=== PATIENT | female | born 1935 | race Caucasian/White ===

== ENCOUNTER → 2017-10-02 | Outpatient (CLI) | payer OTHER ==
[~2017-10-02] MED LIST: ALPR.25; ALPR.25 PO; AMOCLA875 PO; AMOX500; ASPI81CH PO; AZIT500 PO; CALGLU500; CAND32 PO; CAND4; CHOL10002 PO; CONEST1.25; GUAPHELA PO; Golytely Solu4000 ML PO; HYDACE5 PO; HYDGUAL120 PO; HYDROCODON-ACE1 EAC3 PO; Kristalose20 GM PO; LANS30EC; LEVSOD125 PO; LEVSOD137 PO; LEVSOD25; LOSHYD PO; MULVITB PO; MULVITMINF; NAPR220 PO; OMEP20ER PO; SPIR50 PO; TEMA30 PO
[2017-10-03 13:35] LABS: Stool Occult Bld Immuno 1 Negative (NEGATIVE)
== END ==
LOC: LAB 18:12 → LAB SHORT 18:12
PROVIDERS: Nurse Practitioner Family
DX: R19.7 Diarrhea, unspecified (principal)
CPT/HCPCS: G0328

== ENCOUNTER → 2018-06-25 | Outpatient (CLI) | payer OTHER ==
[2018-06-25 14:39] LABS: BASOPHILS ABSOLUTE AUTO 0.04 K/mm3 (0.00-0.23); BASOPHILS PERCENT AUTO 1 % (0-2); EOSINOPHILS ABSOLUTE AUTO 0.18 K/mm3 (0.00-0.68); EOSINOPHILS PERCENT AUTO 4 % (0-6); Hematocrit 38.7 % (33.0-51.0); Hemoglobin 13.1 g/dL (11.5-16.0); IMMATURE GRAN ABSOLUTE AUTO 0.01 K/mm3 (0.00-0.10); IMMATURE GRAN PERCENT AUTO 0 % (0-1); LYMPHOCYTES ABSOLUTE AUTO 1.14 K/mm3 (0.84-5.20); LYMPHOCYTES PERCENT AUTO 26 % (21-46); MONOCYTES ABSOLUTE AUTO 0.47 K/mm3 (0.16-1.47); MONOCYTES PERCENT AUTO 11 % (4-13); Mean Corpuscular HGB 33.2 pg (26.0-34.0); Mean Corpuscular HGB Conc 33.9 g/dL (31.5-36.5); Mean Corpuscular Volume 98 fL (80-100); Mean Platelet Volume 9.6 fL (9.1-12.4); NEUTROPHILS ABSOLUTE AUTO 2.61 K/mm3 (1.96-9.15); NEUTROPHILS PERCENT AUTO 59 % (41-73); Platelet Count 166 K/mm3 (150-400); RDW Coefficient Variation 13.4 % (11.7-14.2); RDW Standard Deviation 48.8 fL (35.1-46.3); Red Blood Cell Count 3.95 M/mm3 (3.80-5.20); White Blood Cell Count 4.45 K/mm3 (4.00-11.30)
== END | disposition home or self-care (01) ==
LOC: LAB 10:35 → LAB SHORT 10:35
DX: E03.9 Hypothyroidism, unspecified (principal); Z86.2 Personal history of diseases of the blood and blood-forming organs and certain disorders involving the immune mechanism
CPT/HCPCS: 84443; 85025

== ENCOUNTER → 2018-12-16 | Outpatient (CLI) | payer OTHER | END | disposition home or self-care (01) | LOC: LAB 16:33 → LAB SHORT 16:33 → LAB FUT 16:33 | DX: R82.90 Unspecified abnormal findings in urine (principal) | CPT/HCPCS: 87077; 87086; 87186 ==

== ENCOUNTER 2019-05-26 11:27 | Emergency (ER) | payer OTHER ==
[~2019-05-26] VITALS: Ht 154.9 cm; Wt 79.4 kg
[2019-05-26 12:08] LABS: BASOPHILS ABSOLUTE AUTO 0.04 K/mm3 (0.00-0.23); BASOPHILS PERCENT AUTO 1 % (0-2); EOSINOPHILS ABSOLUTE AUTO 0.15 K/mm3 (0.00-0.68); EOSINOPHILS PERCENT AUTO 3 % (0-6); Hematocrit 37.8 % (33.0-51.0); Hemoglobin 12.6 g/dL (11.5-16.0); IMMATURE GRAN ABSOLUTE AUTO 0.02 K/mm3 (0.00-0.10); IMMATURE GRAN PERCENT AUTO 0 % (0-1); LYMPHOCYTES ABSOLUTE AUTO 1.18 K/mm3 (0.84-5.20); LYMPHOCYTES PERCENT AUTO 25 % (21-46); MONOCYTES ABSOLUTE AUTO 0.38 K/mm3 (0.16-1.47); MONOCYTES PERCENT AUTO 8 % (4-13); Mean Corpuscular HGB 32.9 pg (26.0-34.0); Mean Corpuscular HGB Conc 33.3 g/dL (31.5-36.5); Mean Corpuscular Volume 99 fL (80-100); Mean Platelet Volume 9.4 fL (9.1-12.4); NEUTROPHILS ABSOLUTE AUTO 2.88 K/mm3 (1.96-9.15); NEUTROPHILS PERCENT AUTO 62 % (41-73); Platelet Count 163 K/mm3 (150-400); RDW Coefficient Variation 12.7 % (11.7-14.2); RDW Standard Deviation 46.2 fL (35.1-46.3); Red Blood Cell Count 3.83 M/mm3 (3.80-5.20); White Blood Cell Count 4.65 K/mm3 (4.00-11.30)
[2019-05-26 12:27] LABS: Alanine Aminotransfer (ALT/SGP 23 U/L (12-78); Albumin/Globulin Ratio 1.2 (0.8-1.8); Alk Phos 37 U/L (50-136); Anion Gap 7 mmol/L (6-16); Aspartate Aminotrans (AST/SGOT 23 U/L (12-37); Bilirubin, Total 0.7 mg/dL (0.1-1.0); Blood Urea Nitrogen 29 mg/dL (8-24); Bun/Creatinine Ratio 36.2 (12.0-20.0); CO2, Blood 27 mmol/L (21-32); Calcium, Blood 8.8 mg/dL (8.5-10.1); Chloride, Blood 100 mmol/L (98-108); Globulin, Blood 3.2 g/dL (2.2-4.0); Glomerular Filtration Rate >60 (60-); Glucose, Blood 92 mg/dL (70-99); Potassium, Blood 3.8 mmol/L (3.5-5.5); Sodium, Blood 134 mmol/L (136-145); Total Protein, Blood 7.2 g/dL (6.4-8.2); Troponin I <0.015 ng/mL (0.000-0.040)
[2019-05-26] MEDS ORDERED: Aldactone50 MG PO (15:20)
[2019-05-26] MEDS ORDERED: LEVSOD112 PO (15:20)
[2019-05-26] MEDS ORDERED: HYDCHL12.5 PO (15:21)
[2019-05-26] MEDS ORDERED: LOSARTAN-HCTZ1 EACH PO (15:22)
[2019-05-26] MEDS ORDERED: CEPH250A PO (15:22)
[2019-05-26] MEDS ORDERED: LORCET 5-325 M1 EACH PO (15:23)
[2019-05-26] MEDS ORDERED: ALPR.25 PO (15:23)
[2019-05-26] MEDS ORDERED: TEMA30 PO (15:24)
== END 2019-05-26 15:40 | disposition home or self-care (01) ==
LOC: ER 11:27
PROVIDERS: Emergency Medicine
DX: K44.9 Diaphragmatic hernia without obstruction or gangrene (principal); R07.2 Precordial pain; I10 Essential (primary) hypertension; E03.9 Hypothyroidism, unspecified; Z88.8 Allergy status to other drugs, medicaments and biological substances; Z88.1 Allergy status to other antibiotic agents; Z79.899 Other long term (current) drug therapy; Z79.82 Long term (current) use of aspirin
CPT/HCPCS: 36415; 71046; 80053; 84484; 85025; 93005; 93010; 99285-25

== ENCOUNTER 2020-04-30 13:10 | Emergency (ER) | payer OTHER ==
[~2020-04-30] VITALS: Ht 162.6 cm; Wt 81.7 kg
[~2020-04-30 13:10] MED LIST changes: +Aldactone50 MG PO; +CEPH250A PO; +HYDCHL12.5 PO; +LEVSOD112 PO; +LORCET 5-325 M1 EACH PO; +LOSARTAN-HCTZ1 EACH PO
[2020-04-30 14:58] LABS: Source, Urine Catheter
[2020-04-30 15:03] LABS: Appearance, Urine Turbid (Clear); Bilirubin, Urine Neg (Neg); Blood, Urine 5+ (Neg); Color, Urine Yellow (P-Yellow); Glucose Qualitative, Urine Neg (Neg); Ketones, Urine Neg (Neg); Leukocyte Esterase, Urine 3+ (Neg); Nitrite, Urine Pos (Neg); Protein, Urine 4+ (Neg); Urobilinogen, Urine NORM (Normal)
[2020-04-30 15:26] LABS: White Blood Cells, Urine TNTC /hpf (0-5)
[2020-04-30 15:27] LABS: Bacteria Many /hpf; Squamous Epithelial Cells Rare /hpf (Few)
[2020-04-30] MEDS ORDERED: CEFP200 PO (15:50)
== END 2020-04-30 16:07 | disposition home or self-care (01) ==
LOC: ER 13:10
PROVIDERS: Emergency Medicine
DX: N39.0 Urinary tract infection, site not specified (principal); Z88.5 Allergy status to narcotic agent; Z88.6 Allergy status to analgesic agent; Z79.899 Other long term (current) drug therapy; I10 Essential (primary) hypertension; E03.9 Hypothyroidism, unspecified
CPT/HCPCS: 81001; 87077; 87086; 87186; 99283

== ENCOUNTER 2020-05-13 15:29 | Inpatient (IN) | payer OTHER ==
[~2020-05-13] VITALS: Ht 157.5 cm; Wt 80.2 kg
[~2020-05-13 15:29] MED LIST changes: +CEFP200 PO; +LEVSOD100 PO; -LEVSOD112 PO
[2020-05-13] MEDS ORDERED: POTA10T PO (15:48)
[2020-05-13] MEDS ORDERED: LOSA50 PO (15:49)
[2020-05-13] MEDS ORDERED: OMEP20ER PO (15:51)
[2020-05-13] MEDS ORDERED: TRIM100 PO (15:52)
[2020-05-13 16:12] LABS: BASOPHILS ABSOLUTE AUTO 0.07 K/mm3 (0.00-0.23); BASOPHILS PERCENT AUTO 1 % (0-2); EOSINOPHILS ABSOLUTE AUTO 0.18 K/mm3 (0.00-0.68); EOSINOPHILS PERCENT AUTO 2 % (0-6); Hemoglobin 13.4 g/dL (11.5-16.0); IMMATURE GRAN ABSOLUTE AUTO 0.08 K/mm3 (0.00-0.10); IMMATURE GRAN PERCENT AUTO 1 % (0-1); LYMPHOCYTES ABSOLUTE AUTO 0.86 K/mm3 (0.84-5.20); LYMPHOCYTES PERCENT AUTO 8 % (21-46); MONOCYTES ABSOLUTE AUTO 0.98 K/mm3 (0.16-1.47); MONOCYTES PERCENT AUTO 9 % (4-13); Mean Corpuscular HGB 32.1 pg (26.0-34.0); Mean Corpuscular HGB Conc 34.4 g/dL (31.5-36.5); Mean Corpuscular Volume 93 fL (80-100); Mean Platelet Volume 9.7 fL (9.1-12.4); NEUTROPHILS ABSOLUTE AUTO 8.64 K/mm3 (1.96-9.15); NEUTROPHILS PERCENT AUTO 80 % (41-73); Platelet Count 194 K/mm3 (150-400); RDW Coefficient Variation 13.3 % (11.7-14.2); RDW Standard Deviation 45.4 fL (35.1-46.3); Red Blood Cell Count 4.18 M/mm3 (3.80-5.20); White Blood Cell Count 10.81 K/mm3 (4.00-11.30)
[2020-05-13 16:22] LABS: Alanine Aminotransfer (ALT/SGP 15 U/L (12-78); Albumin, Blood 3.2 g/dL (3.4-5.0); Albumin/Globulin Ratio 0.9 (0.8-1.8); Alk Phos 34 U/L (50-136); Anion Gap 9 mmol/L (6-16); Aspartate Aminotrans (AST/SGOT 18 U/L (12-37); Bilirubin, Total 0.6 mg/dL (0.1-1.0); Blood Urea Nitrogen 12 mg/dL (8-24); Bun/Creatinine Ratio 18.5 (12.0-20.0); CO2, Blood 21 mmol/L (21-32); Calcium, Blood 8.8 mg/dL (8.5-10.1); Chloride, Blood 105 mmol/L (98-108); Creatinine, Blood 0.65 mg/dL (0.40-1.00); Globulin, Blood 3.6 g/dL (2.2-4.0); Glomerular Filtration Rate >60 (60-); Glucose, Blood 103 mg/dL (70-99); Potassium, Blood 3.1 mmol/L (3.5-5.5); Sodium, Blood 135 mmol/L (136-145); Total Protein, Blood 6.8 g/dL (6.4-8.2)
[2020-05-13 16:27] LABS: Source, Urine Clean Catch
[2020-05-13 16:34] LABS: Appearance, Urine Hazy (Clear); Bilirubin, Urine Neg (Neg); Blood, Urine 5+ (Neg); Color, Urine Yellow (P-Yellow); Glucose Qualitative, Urine Neg (Neg); Ketones, Urine 3+ (Neg); Leukocyte Esterase, Urine 1+ (Neg); Nitrite, Urine Neg (Neg); Protein, Urine 2+ (Neg); Urobilinogen, Urine NORM (Normal)
[2020-05-13 16:45] LABS: White Blood Cells, Urine 25-50 /hpf (0-5)
[2020-05-13 16:46] LABS: Bacteria Rare /hpf; Red Blood Cells, Urine 50-100 /hpf (0-2); Squamous Epithelial Cells Rare /hpf (Few); Yeast/Fungi Urine Few /hpf
[2020-05-13] MEDS ORDERED: ALPR.25 PO (20:49)
--- NOTE | 2020-05-14 04:30 | NUR ---
SUMMARY PT ARRIVED TO FLOOR IN NO DISTRESS. PT HAD EPISODES OF DIARRHEA. PT NORMALLY SELF CATHS BUT REQUIRED ASSISTANCE. PT HAS BEEN SLEEPING WELL. PT CURRENTLY SLEEPING AND IN NO DISTRESS. CALL LIGHT IN REACH.
[2020-05-14 05:00] LABS: BASOPHILS ABSOLUTE AUTO 0.06 K/mm3 (0.00-0.23); BASOPHILS PERCENT AUTO 1 % (0-2); EOSINOPHILS ABSOLUTE AUTO 0.18 K/mm3 (0.00-0.68); EOSINOPHILS PERCENT AUTO 2 % (0-6); Hematocrit 36.7 % (33.0-51.0); Hemoglobin 12.4 g/dL (11.5-16.0); IMMATURE GRAN ABSOLUTE AUTO 0.06 K/mm3 (0.00-0.10); IMMATURE GRAN PERCENT AUTO 1 % (0-1); LYMPHOCYTES ABSOLUTE AUTO 0.89 K/mm3 (0.84-5.20); LYMPHOCYTES PERCENT AUTO 11 % (21-46); MONOCYTES ABSOLUTE AUTO 0.96 K/mm3 (0.16-1.47); MONOCYTES PERCENT AUTO 12 % (4-13); Mean Corpuscular HGB 32.3 pg (26.0-34.0); Mean Corpuscular HGB Conc 33.8 g/dL (31.5-36.5); Mean Corpuscular Volume 96 fL (80-100); Mean Platelet Volume 9.4 fL (9.1-12.4); NEUTROPHILS ABSOLUTE AUTO 5.87 K/mm3 (1.96-9.15); NEUTROPHILS PERCENT AUTO 73 % (41-73); Platelet Count 174 K/mm3 (150-400); RDW Coefficient Variation 13.7 % (11.7-14.2); RDW Standard Deviation 48.1 fL (35.1-46.3); Red Blood Cell Count 3.84 M/mm3 (3.80-5.20); White Blood Cell Count 8.02 K/mm3 (4.00-11.30)
[2020-05-14 05:21] LABS: Alanine Aminotransfer (ALT/SGP 15 U/L (12-78); Albumin, Blood 2.9 g/dL (3.4-5.0); Albumin/Globulin Ratio 0.9 (0.8-1.8); Alk Phos 31 U/L (50-136); Anion Gap 7 mmol/L (6-16); Aspartate Aminotrans (AST/SGOT 10 U/L (12-37); Bilirubin, Total 0.5 mg/dL (0.1-1.0); Blood Urea Nitrogen 10 mg/dL (8-24); Bun/Creatinine Ratio 14.8 (12.0-20.0); CO2, Blood 24 mmol/L (21-32); Calcium, Blood 8.7 mg/dL (8.5-10.1); Chloride, Blood 105 mmol/L (98-108); Creatinine, Blood 0.67 mg/dL (0.40-1.00); Globulin, Blood 3.2 g/dL (2.2-4.0); Glomerular Filtration Rate >60 (60-); Glucose, Blood 110 mg/dL (70-99); Potassium, Blood 3.3 mmol/L (3.5-5.5); Sodium, Blood 136 mmol/L (136-145); Total Protein, Blood 6.1 g/dL (6.4-8.2)
--- NOTE | 2020-05-14 14:30 | NUR ---
SHE HAS JUST NEEDED AN IV RESTART BECAUSE HER OLD LFA IV BOTH LEAKED AND LIGHTLY INFILTRATED. SHE WAS ST.CATHED IN THE 10 OCLOCK HOUR FOR 260 MLS OF CONCENTRATED ORANGE ARLENE URINE. SHE IS A&O BUT FORGETFUL. SHE IS WORRIED ABOUT HER AT HOME. SHE CALLED HIM AND SPOKE WITH HIM ON THE PHONE. SHE SAYS HER DAUGHTER WILL CHECK ON HIM. SHE HAS HAD 3 MUCOUSY BROWN YELLOW STOOLS SO FAR THIS SHIFT. THE NIGHT NURSE SAID SHE HAD 3 OR 4 LAST NIGHT AND THE PATIENT AGREES. THEY ARE NOT CHARTED IN THE I&O. A PROBIOTIC HAS BEEN STARTED. SHE CONTINUES ON ORAL VANCO ELIXER.
--- NOTE | 2020-05-14 17:31 | NUR ---
SHE CONTINUES TO PASS MUCOUS AND STOOL RECTALLY, SMALL TO MEDIUM AMTS. SHE HAS BEEN ST. CATHED X2 THE LAST AT 1640. URINE IS CONCENTRATED. CONTINUOUS IVF'S HAVE BEEN STOPPED.TELE NSR. PO POTASSIUM REPLACEMENT GIVEN THIS AM.
--- NOTE | 2020-05-15 06:43 | NUR ---
SHIFT SUMMARY PT A&O X4. CALLS APPROPRIATELY. SBA WITH WALKER TO BSC. MEDICATED X2 FOR COMPLAINTS OF L KNEE PAIN. MEDICATED X1 FOR COMPLAINTS OF NAUSEA. PT STATES SHE WILL ASK DAUGHTER TO BRING HOME CATH KIT IN, SHE HAS TROUBLES WITH OUR KITS. NO OTHER ACUTE CHANGE THIS SHIFT. NO OTHER COMPLAINTS AT THIS TIME. WILL CONTINUE TO MONITOR UNTIL REPORT GIVEN TO DAY RN.
[2020-05-15 08:41] LABS: Anion Gap 8 mmol/L (6-16); Blood Urea Nitrogen 10 mg/dL (8-24); Bun/Creatinine Ratio 16.8 (12.0-20.0); CO2, Blood 21 mmol/L (21-32); Calcium, Blood 8.4 mg/dL (8.5-10.1); Chloride, Blood 105 mmol/L (98-108); Glomerular Filtration Rate >60 (60-); Glucose, Blood 112 mg/dL (70-99); Potassium, Blood 3.3 mmol/L (3.5-5.5); Sodium, Blood 134 mmol/L (136-145)
--- NOTE | 2020-05-15 15:37 | NUR ---
SHE HAS HAD A DIFFICULT DAY. SHE HAS HAD PAIN IN HER L LEG, EXCRUTIATING AT TIMES, AND PAIN IN HER BACK. SHE HAS HAD 3 SMALL OR MEDIUM LIQUID BROWN STOOLS TODAY WITH MUCH LESS MUCOUS COMPARED TO YESTERDAY. SHE HAS BEEN ST.CATHED X2 FOR CONCENTRATED URINE. BLADDER SCAN DONE POST CATH THIS MORNING AND SHOWED INDEED AN EMPTY BLADDER. BECAUSE OF HER DESPERATE C/O PAIN ORDERED HYDROCODONE WHICH SHE TAKES AT HOME FOR HER BACK. SHE RECEIVED THAT ONCE THEN LATER A DOSE OF FENTANYL BECAUSE SHE C/O EXCRUCIATING PAIN IN HER L KNEE, MOSTLY THE KNEE CAP AREA, AND HER BACK. I CANNOT SEE ANYTHING ABNORMAL ABOUT HER L KNEE. SHE LATER SAID IT HURT UP TO HER L GROIN. I DO NOT SEE ANY ABNORMALITY. SHE DIALED 911 FROM HER PHONE BECAUSE SHE SAID WE DIDN'T ANSWER HER CALL LIGHT. SHE SHOWED ME THE BUTTON SHE WAS PUSHING. IT WAS HER TV BUTTON. I RE-INSTRUCTED HER. THEN SHE WOKE UP FROM A SHORT NAP AND WAS YELLING LOUD. SHE THOUGHT SHE HEARD HER SON. HE IS NOT HERE. SHE REALIZED SHE WOKE UP CONFUSED AFTER I SPOKE WITH HER AWHILE. HER DAUGHTER BROUGHT HER CATHETERS FROM HOME. THE 2ND CATH TODAY WAS DONE WITH HER OWN. SHE COULD NOT DO IT THOUGH BECAUSE OF HER KNEE NOT ALLOWING A SUCCESSFUL POSITION.
--- NOTE | 2020-05-15 16:30 | NUR ---
SHE CALLED OUT BECAUSE SHE DID NOT KNOW WHERE SHE WAS. I RE-ORIENTED HER AND SHE WAS ABLE TO SWALLOW HER POTASSIUM REPLACEMENT AND A HYDROCODONE. THE FENTANYL WAS DC'D PRESUMING THAT IT IS WHAT IS CAUSING HER CONFUSION. SHE HAS A HYDROCODONE PRESCRIPTION AT HOME. I ASKED HER IF SHE TAKES HER XANAX AT HOME DAILY. SHE SAID NO. BED ALARM IS ON AND SHE WAS RE-ORIENTED ON OUR FALL PRECAUTIONS. SHE HAS HAD MOBILITY DIFFICULTY D/T HER PAINFUL L KNEE.
--- NOTE | 2020-05-15 17:34 | NUR ---
SHE HAS HAD AN EVENTFUL DAY. FENTANYL DC'D D/T SUDDEN CONFUSION. HYDROCODONE ORDERED Q6P PAIN IN HER L KNEE AND BACK. MOBILITY DECREASED TODAY D/T HER L KNEE PAIN. STOOL LESS FREQUENT TODAY, LESS URGENT AND LESS MUCOUSY. HIGHEST TEMP 99.5. TELE NSR. PO POTASSIUM REPLACEMENT GIVEN. HER DAUGHTER BROUGHT IN HER OWN URINARY CATHETERS. THEY ARE LESS PAINFUL FOR HER. WILL PUT RIC WRAP ON L KNEE PER HER REQUEST.
--- NOTE | 2020-05-15 18:07 | NUR ---
UP IN THE CHAIR FOR DINNER. SHE STILL REMAINS ON A CL DIET. CHAIR ALARM ON. SHE IS NEARLY BACK TO HER BASELINE MENTAL STATUS.
--- NOTE | 2020-05-16 05:27 | NUR ---
SHIFT SUMMARY PT HAS BEEN AWAKE MOST OF THE NIGHT OFF AND ON. PT A/OX3 BUT WAKES UP CONFUSED/DISORIENTED AND FORGETFUL. PT HAS BEEN REDIRECTABLE AND EASY TO REORIENT. PT HAS SELF CATHETER KITS BROUGHT IN FROM HOME AND SHE HAS BEEN ABLE TO USE THEM INDEPENDENTLY, HOWEVER DOES NEED ASSISTANCE GETTING TO THE BEDSIDE COMMODE. PT GETS ABOUT 125-200ML ON AVERAGE WITH EACH CATH. PT HAS SELF CATH ABOUT 3X THIS SHIFT. IV ABX INFUSED PER ORDERS. NEW IV START THIS SHIFT TO RIGHT AC. MEDICATED FOR LEFT KNEE PAIN PER ORDERS. NO ACUTE CHANGES TO REPORT. BED IN LOWEST POSITION, CALL LIGHT WITHIN REACH.
--- NOTE | 2020-05-16 07:36 | NUR ---
pt resting wakes to verbal stimuli pt stated no abd cramping with stool like yesterday pt worried about self cath too much last night
--- NOTE | 2020-05-16 09:51 | NUR ---
dr Perdomo by to see pt labs ordered for am
[2020-05-16 10:42] LABS: Magnesium, Blood 1.5 mg/dL (1.6-2.4); Potassium, Blood 3.1 mmol/L (3.5-5.5)
--- NOTE | 2020-05-16 10:54 | NUR ---
pt found sitting up on the floor in between her bsc on her bed stated she had just had small bm and then got up to get her equipment to self cath and her feet slipped and she fell onto her butt it does not hurt helped her to her feet and then she self cathed dr calhoun notified no xray ordered will cont to monitor instructed pt to call every time she gets up and non skid socks placed if pt ref to call will place will bed alarm
--- NOTE | 2020-05-16 12:00 | NUR ---
PT RESTING WAKES TO VERBAL STIMULI PT GIVEN HER LUNCH TRAY WISHES IT WAS REG FOOD
--- NOTE | 2020-05-16 15:50 | NUR ---
PT ASKED WHEN DINNER IS ONLY ONE SMALL BM YARY TOLD PT IF SHE CONT TO HAVE DEC BM WE CAN ASK DR LOMELI TO ADV THE DIET TOMORROW
--- NOTE | 2020-05-16 17:41 | NUR ---
pt watching tv stated she has still not had any other bm today just small one earlier no pain at this time cl diet given medas given as sched
--- NOTE | 2020-05-17 05:03 | NUR ---
EMBEDDED SYSTEMS DEVELOPER SUMMARY PT A/O X4 WITH FORGETFULNESS. FREQUENT URINATION. PT SELF CATHETERIZES AND CALLS APPROPRIATELY EACH TIME WHEN NEEDING TO VOID. BED ALARM ON. MEDICATED ONCE FOR PAIN IN FT TONIGHT. DENIES NAUSEA, CRAMPING. PT HAD A MEDIUM BROWN MUCOUSY STOOL THIS EARLY AM. VSS.
[2020-05-17 05:54] LABS: Anion Gap 9 mmol/L (6-16); Blood Urea Nitrogen 5 mg/dL (8-24); Bun/Creatinine Ratio 9.1 (12.0-20.0); CO2, Blood 20 mmol/L (21-32); Calcium, Blood 8.5 mg/dL (8.5-10.1); Chloride, Blood 105 mmol/L (98-108); Creatinine, Blood 0.55 mg/dL (0.40-1.00); Glomerular Filtration Rate >60 (60-); Glucose, Blood 100 mg/dL (70-99); Sodium, Blood 134 mmol/L (136-145)
--- NOTE | 2020-05-17 18:40 | NUR ---
PT WANTED TO DISCHARGE THIS AFTERNOON BUT DEVELOPED BLADDER SPASMS THAT WERE QUITE SEVERE PER PT. DR LOMELI INFORMED WITH T/C, DITROPAN ORDERED TID, FIRST DOSE NOW. PT IS REPORTING RELIEF OF SPASMS AT THIS TIME. WILL CONTINUE TO MONITOR AND REPORT TO ONCOMING RN
--- NOTE | 2020-05-18 04:18 | NUR ---
SHIFT SUMMARY PATIENT HAD NO ACUTE CHANGES OBSERVED. AXOX 3 AND ONE ASSIST TO BSC. PIV REMAINS INTACT. IV ABX INFUSED. AUTO BODY MECHANIC APPRENTICE REPORTS SB 58. SELF CATH WITH HOME KIT. VSS/AFEBRILE. REPORTED LEG PAIN AND RECEIVED NORCO PER EMAR. REPORTED SHE DID NOT SLEEP WELL LAST NOC SHIFT AND TEMAZEPAM 15 MG GIVEN FOR INSOMNIA. ORAL VANCO GIVEN PER EMAR. CALL LIGHT IN REACH. BED IN LOWEST POSITION. WILL CONTINUE TO MONITOR UNTIL DAY SHIFT NURSE ASSUMES CARE.
[2020-05-18 05:22] LABS: Anion Gap 6 mmol/L (6-16); Blood Urea Nitrogen 5 mg/dL (8-24); Bun/Creatinine Ratio 9.8 (12.0-20.0); CO2, Blood 23 mmol/L (21-32); Calcium, Blood 8.4 mg/dL (8.5-10.1); Chloride, Blood 105 mmol/L (98-108); Creatinine, Blood 0.51 mg/dL (0.40-1.00); Glomerular Filtration Rate >60 (60-); Glucose, Blood 91 mg/dL (70-99); Magnesium, Blood 1.7 mg/dL (1.6-2.4); Potassium, Blood 3.3 mmol/L (3.5-5.5); Sodium, Blood 134 mmol/L (136-145)
[2020-05-18] MEDS ORDERED: OXYB5 PO (15:25)
[2020-05-18] MEDS ORDERED: Vancomycin500 MG/100 PO (15:27)
[2020-05-18] MEDS ORDERED: SACC250C PO (15:29)
--- NOTE | 2020-05-18 16:23 | NUR ---
DISCHARGE DISCHARGE INSTRUCTIONS, MEDICATION LIST AND FOLLOW UP APPOINTMENT REVIEWED WITH PT. QUESTIONS/CONCERNS ANSWERED. PT VERBALLY EXPRESSED UNDERSTANDING OF ALL INSTRUCTIONS RECEIVED. ESCORTED OUT VIA W/C BY AKILAH
== END 2020-05-18 16:19 | disposition home or self-care (01) | DRG 372 ==
LOC: ER 15:29 → MEDS 21:06
PROVIDERS: Internal Medicine; Physician Assistant; ADMIT Internal Medicine
DX: A04.72 Enterocolitis due to Clostridium difficile, not specified as recurrent (principal); N39.0 Urinary tract infection, site not specified; E03.9 Hypothyroidism, unspecified; E86.0 Dehydration; E87.6 Hypokalemia; Z20.828 Contact with and (suspected) exposure to other viral communicable diseases; F41.9 Anxiety disorder, unspecified; I10 Essential (primary) hypertension; K21.9 Gastro-esophageal reflux disease without esophagitis; E83.42 Hypomagnesemia
CPT/HCPCS: 36415; 51701; 74177; 80048; 80053; 81001; 83690; 83735; 84132; 85025; 87086; 87106; 87324; 87493; 93005; 93010; 96361-59; 96374-59; 99285-25; A9270; A9270-GY; J0696; J1650; J2405; J3010; J3370; J3475; J7030; J7120; Q9967; U0002

== ENCOUNTER 2020-06-05 03:57 | Observation (INO) | payer OTHER ==
[~2020-06-05] VITALS: Ht 152.4 cm; Wt 77.1 kg
[~2020-06-05 03:57] MED LIST changes: +LOSA50 PO; +OXYB5 PO; +POTA10T PO; +SACC250C PO; +TRIM100 PO; +VANCOCIN HCL125 MG PO; +Vancomycin500 MG/100 PO
[2020-06-05 04:12] LABS: BASOPHILS ABSOLUTE AUTO 0.03 K/mm3 (0.00-0.23); BASOPHILS PERCENT AUTO 0 % (0-2); EOSINOPHILS ABSOLUTE AUTO 0.12 K/mm3 (0.00-0.68); EOSINOPHILS PERCENT AUTO 1 % (0-6); Hematocrit 37.6 % (33.0-51.0); Hemoglobin 12.8 g/dL (11.5-16.0); IMMATURE GRAN ABSOLUTE AUTO 0.05 K/mm3 (0.00-0.10); IMMATURE GRAN PERCENT AUTO 1 % (0-1); LYMPHOCYTES ABSOLUTE AUTO 0.89 K/mm3 (0.84-5.20); LYMPHOCYTES PERCENT AUTO 9 % (21-46); MONOCYTES ABSOLUTE AUTO 0.79 K/mm3 (0.16-1.47); MONOCYTES PERCENT AUTO 8 % (4-13); Mean Corpuscular HGB 31.7 pg (26.0-34.0); Mean Corpuscular Volume 93 fL (80-100); Mean Platelet Volume 9.5 fL (9.1-12.4); NEUTROPHILS ABSOLUTE AUTO 8.04 K/mm3 (1.96-9.15); NEUTROPHILS PERCENT AUTO 81 % (41-73); Platelet Count 212 K/mm3 (150-400); RDW Coefficient Variation 12.8 % (11.7-14.2); RDW Standard Deviation 44.3 fL (35.1-46.3); Red Blood Cell Count 4.04 M/mm3 (3.80-5.20); White Blood Cell Count 9.92 K/mm3 (4.00-11.30)
[2020-06-05 04:34] LABS: Alanine Aminotransfer (ALT/SGP 18 U/L (12-78); Albumin, Blood 3.3 g/dL (3.4-5.0); Albumin/Globulin Ratio 0.8 (0.8-1.8); Alk Phos 38 U/L (50-136); Anion Gap 11 mmol/L (6-16); Aspartate Aminotrans (AST/SGOT 16 U/L (12-37); Bilirubin, Total 0.8 mg/dL (0.1-1.0); Blood Urea Nitrogen 13 mg/dL (8-24); Bun/Creatinine Ratio 17.3 (12.0-20.0); CO2, Blood 23 mmol/L (21-32); Calcium, Blood 9.3 mg/dL (8.5-10.1); Chloride, Blood 101 mmol/L (98-108); Creatinine, Blood 0.75 mg/dL (0.40-1.00); Globulin, Blood 3.9 g/dL (2.2-4.0); Glomerular Filtration Rate >60 (60-); Glucose, Blood 134 mg/dL (70-99); Potassium, Blood 3.2 mmol/L (3.5-5.5); Sodium, Blood 135 mmol/L (136-145); Total Protein, Blood 7.2 g/dL (6.4-8.2)
[2020-06-05 11:38] LABS: Source, Urine Catheter
[2020-06-05 11:40] LABS: Bilirubin, Urine Neg (Neg); Blood, Urine 5+ (Neg); Glucose Qualitative, Urine Neg (Neg); Ketones, Urine 3+ (Neg); Leukocyte Esterase, Urine 2+ (Neg); Nitrite, Urine Neg (Neg); Protein, Urine 2+ (Neg); Urobilinogen, Urine NORM (Normal)
[2020-06-05 11:53] LABS: Appearance, Urine Hazy (Clear); Color, Urine Yellow (P-Yellow)
[2020-06-05 11:57] LABS: Bacteria Rare /hpf; Squamous Epithelial Cells Rare /hpf (Few); White Blood Cells, Urine 25-50 /hpf (0-5)
--- NOTE | 2020-06-05 16:33 | NUR ---
PATIENT IS ALERT AND ORIENTED AND COOPERATIVE WITH CARE. PATIENT COMPLAINS OF PAIN IN HER LEFT LEG, TREATED PER EMAR. PAIN HAS IMPROVED SINCE HER ADMISSION. NO WATERY DIARRHEA SINCE SHE HAS BEEN ON THE MEDICAL FLOOR. AHMADI IS IN PLACE AND PATENT. THE PATIENT WORKED WITH PT THIS AFTERNOON AND WAS ABLE TO STAND AT THE BEDSIDE, SHE WAS UNABLE TO WALK. WILL CONTINUE TO MONITOR.
--- NOTE | 2020-06-05 21:15 | NUR ---
2000 PT RESTING COMFORTABLY; ALERT AND ORIENTED X 2; BED ALARM APPLIED.
--- NOTE | 2020-06-06 04:13 | NUR ---
SHIFT SUMMARY: 85 Y/O FEMALE RESTED COMFORTABLY ALL SHIFT; PT C/O BACK PAIN RATED 7/10 WITH NORCO 5/325MG PO GIVEN WITH RELIEF; PT ALERT AND ORIENTED X 2, ABLE TO FOLLOW SIMPLE VERBAL COMMANDS; AHMADI DRAINING CLEAR YELLOW FLUID; LEFT FOOT PUSH WEAKER THAN RIGHT; BED ALARM APPLIED, BED LOW POSITION WITH CALL LIGHT AT SIDE.
[2020-06-06 05:23] LABS: BASOPHILS ABSOLUTE AUTO 0.09 K/mm3 (0.00-0.23); BASOPHILS PERCENT AUTO 1 % (0-2); EOSINOPHILS ABSOLUTE AUTO 0.34 K/mm3 (0.00-0.68); EOSINOPHILS PERCENT AUTO 5 % (0-6); Hemoglobin 10.9 g/dL (11.5-16.0); IMMATURE GRAN ABSOLUTE AUTO 0.03 K/mm3 (0.00-0.10); IMMATURE GRAN PERCENT AUTO 1 % (0-1); LYMPHOCYTES ABSOLUTE AUTO 1.41 K/mm3 (0.84-5.20); LYMPHOCYTES PERCENT AUTO 21 % (21-46); MONOCYTES ABSOLUTE AUTO 0.59 K/mm3 (0.16-1.47); MONOCYTES PERCENT AUTO 9 % (4-13); Mean Corpuscular HGB Conc 34.1 g/dL (31.5-36.5); Mean Corpuscular Volume 94 fL (80-100); NEUTROPHILS ABSOLUTE AUTO 4.15 K/mm3 (1.96-9.15); NEUTROPHILS PERCENT AUTO 63 % (41-73); Platelet Count 193 K/mm3 (150-400); RDW Coefficient Variation 13.2 % (11.7-14.2); RDW Standard Deviation 45.4 fL (35.1-46.3); Red Blood Cell Count 3.41 M/mm3 (3.80-5.20); White Blood Cell Count 6.61 K/mm3 (4.00-11.30)
[2020-06-06 05:36] LABS: Alanine Aminotransfer (ALT/SGP 18 U/L (12-78); Albumin, Blood 2.5 g/dL (3.4-5.0); Albumin/Globulin Ratio 0.8 (0.8-1.8); Alk Phos 30 U/L (50-136); Anion Gap 8 mmol/L (6-16); Aspartate Aminotrans (AST/SGOT 17 U/L (12-37); Bilirubin, Total 0.6 mg/dL (0.1-1.0); Blood Urea Nitrogen 11 mg/dL (8-24); CO2, Blood 20 mmol/L (21-32); Calcium, Blood 8.3 mg/dL (8.5-10.1); Chloride, Blood 106 mmol/L (98-108); Creatinine, Blood 0.58 mg/dL (0.40-1.00); Globulin, Blood 3.3 g/dL (2.2-4.0); Glomerular Filtration Rate >60 (60-); Glucose, Blood 88 mg/dL (70-99); Potassium, Blood 3.2 mmol/L (3.5-5.5); Sodium, Blood 134 mmol/L (136-145); Total Protein, Blood 5.8 g/dL (6.4-8.2)
[2020-06-06] MEDS ORDERED: VANCOCIN HCL125 MG PO (15:14)
[2020-06-06] MEDS ORDERED: LIDOCAINE1 EAC1 TOP (15:14)
[2020-06-06] MEDS ORDERED: FAMO20 PO (15:14)
[2020-06-06] MEDS ORDERED: OXYB5 PO (15:15)
--- NOTE | 2020-06-06 17:15 | NUR ---
Per admit trigger, I met with Pao about ACP. She was in the process of discharge and wanted to talk. She is clearly emotionally and physically overwhelmed trying to care for her at home with escalating dementia. Dtr "tries to help." Pao was appreciaitve of theraputic listening. she told me she has a completed advanced directive at home. Advised she provide [facility] with a copy.
--- NOTE | 2020-06-06 19:19 | NUR ---
DISCHARGE SUMMARY: LATE ENTRY FOR 1649 PATIENT REPORTED PAIN IN THE LEFT KNEE DURING THE SHIFT WITH MOVEMENT. SHE REPORTED THAT THE PRN PAIN MEDICATION KEPT HER PAIN AT A TOLERABLE LEVEL OF "4/10". PATIENT WAS HESITANT TO BEAR FULL WEIGHT ON LEFT LEG. WITH ONE PERSON ASSIST, PATIENT UP TO THE CHAIR MULTIPLE TIMES. PATIENT DENIED ANY DIARRHEA SINCE YESTERDAY MORNING. PATIENT DENIED NAUSEA OR ABDOMINAL CRAMPING. AFTER VISIT FROM DR. KIRBY, PATIENT REPORTED THAT AFTER CONSIDERING HER OPTIONS, SHE WAS READY FOR DISCHARGE TODAY. DISCUSSED WITH DR. KIRBY. DISCHARGE RX FAXED TO PREFERRED PHARMACY PER PATIENT REQUEST. DISCHARGE EDUCATION PROVIDED TO THE PATIENT IN THE ROOM AND TO THE DAUGHTER AT [facility]. ALL QUESTIONS AND CONCERNS ADDRESSED. PATIENT ABLE TO ANSWER WITH TEACHBACK QUESTIONS. PATIENT DISCHARGED IN WHEELCHAIR WITH RN. PATIENT STABLE AT TIME OF DISCHARGE.
== END 2020-06-06 16:56 | disposition home health service (06) ==
LOC: ER 03:57 → ERHOLD 03:58 → MEDS 03:58 → ERHOLD 06:36 → MEDS 06:36 → ER 06:36 → MEDS 12:26 → ERHOLD 12:26 → MEDS 06-06 16:56
PROVIDERS: Emergency Medicine; ADMIT Internal Medicine
DX: A04.71 Enterocolitis due to Clostridium difficile, recurrent (principal); N39.0 Urinary tract infection, site not specified; M25.552 Pain in left hip; E86.0 Dehydration; E87.1 Hypo-osmolality and hyponatremia; E87.6 Hypokalemia; I10 Essential (primary) hypertension; E03.9 Hypothyroidism, unspecified; K21.9 Gastro-esophageal reflux disease without esophagitis; F41.9 Anxiety disorder, unspecified; M17.12 Unilateral primary osteoarthritis, left knee; N32.81 Overactive bladder; N81.10 Cystocele, unspecified; G89.4 Chronic pain syndrome; M54.9 Dorsalgia, unspecified; F11.20 Opioid dependence, uncomplicated; Z90.710 Acquired absence of both cervix and uterus; Z90.49 Acquired absence of other specified parts of digestive tract; Z96.659 Presence of unspecified artificial knee joint; Z88.1 Allergy status to other antibiotic agents; Z88.6 Allergy status to analgesic agent; Z23 Encounter for immunization; Z79.2 Long term (current) use of antibiotics; Z79.899 Other long term (current) drug therapy; W19.XXXA Unspecified fall, initial encounter
CPT/HCPCS: 36415; 51701; 51702; 73502; 73562-LT; 80053; 81001; 83605; 85025; 87040; 87086; 93005; 93010; 93971; 96361; 96372; 96374; 96375; 97161; 97166; 97530; 97535; 99285-25; A9270; A9270-GY; G0008; G0378; J1650; J2405; J3010; J3480; J7030; Q2038

== ENCOUNTER 2020-06-07 00:55 | Emergency (ER) | payer OTHER ==
[~2020-06-07] VITALS: Ht 152.4 cm; Wt 80.3 kg
[~2020-06-07 00:55] MED LIST changes: +FAMO20 PO; +LIDOCAINE1 EAC1 TOP
[2020-06-07 03:03] LABS: Source, Urine Clean Catch
[2020-06-07 03:05] LABS: BASOPHILS ABSOLUTE AUTO 0.05 K/mm3 (0.00-0.23); BASOPHILS PERCENT AUTO 1 % (0-2); EOSINOPHILS ABSOLUTE AUTO 0.12 K/mm3 (0.00-0.68); EOSINOPHILS PERCENT AUTO 2 % (0-6); Hematocrit 35.5 % (33.0-51.0); Hemoglobin 11.9 g/dL (11.5-16.0); IMMATURE GRAN ABSOLUTE AUTO 0.06 K/mm3 (0.00-0.10); IMMATURE GRAN PERCENT AUTO 1 % (0-1); LYMPHOCYTES ABSOLUTE AUTO 0.59 K/mm3 (0.84-5.20); LYMPHOCYTES PERCENT AUTO 9 % (21-46); MONOCYTES ABSOLUTE AUTO 0.67 K/mm3 (0.16-1.47); MONOCYTES PERCENT AUTO 10 % (4-13); Mean Corpuscular HGB 31.2 pg (26.0-34.0); Mean Corpuscular HGB Conc 33.5 g/dL (31.5-36.5); Mean Corpuscular Volume 93 fL (80-100); Mean Platelet Volume 10.2 fL (9.1-12.4); NEUTROPHILS ABSOLUTE AUTO 5.09 K/mm3 (1.96-9.15); NEUTROPHILS PERCENT AUTO 77 % (41-73); Platelet Count 194 K/mm3 (150-400); RDW Coefficient Variation 13.1 % (11.7-14.2); RDW Standard Deviation 44.8 fL (35.1-46.3); Red Blood Cell Count 3.82 M/mm3 (3.80-5.20); White Blood Cell Count 6.58 K/mm3 (4.00-11.30)
[2020-06-07 03:07] LABS: Bilirubin, Urine Neg (Neg); Blood, Urine 5+ (Neg); Glucose Qualitative, Urine Neg (Neg); Ketones, Urine 3+ (Neg); Leukocyte Esterase, Urine 3+ (Neg); Nitrite, Urine Neg (Neg); Protein, Urine 3+ (Neg); Specific Gravity, Urine 1.015 (1.003-1.022); Urobilinogen, Urine NORM (Normal)
[2020-06-07 03:11] LABS: Appearance, Urine Hazy (Clear); Color, Urine Yellow (P-Yellow)
[2020-06-07 03:13] LABS: Amorphous Light (0-Heavy); Bacteria Few /hpf; Squamous Epithelial Cells Few /hpf (Few); White Blood Cells, Urine 25-50 /hpf (0-5)
[2020-06-07 03:20] LABS: Alanine Aminotransfer (ALT/SGP 24 U/L (12-78); Albumin, Blood 2.9 g/dL (3.4-5.0); Albumin/Globulin Ratio 0.8 (0.8-1.8); Alk Phos 34 U/L (50-136); Anion Gap 9 mmol/L (6-16); Aspartate Aminotrans (AST/SGOT 26 U/L (12-37); Bilirubin, Total 0.5 mg/dL (0.1-1.0); Blood Urea Nitrogen 12 mg/dL (8-24); Bun/Creatinine Ratio 18.3 (12.0-20.0); CO2, Blood 21 mmol/L (21-32); CPK Creatine Kinase 71 U/L (26-193); Calcium, Blood 8.7 mg/dL (8.5-10.1); Chloride, Blood 103 mmol/L (98-108); Creatinine, Blood 0.65 mg/dL (0.40-1.00); Globulin, Blood 3.6 g/dL (2.2-4.0); Glomerular Filtration Rate >60 (60-); Glucose, Blood 113 mg/dL (70-99); Potassium, Blood 3.6 mmol/L (3.5-5.5); Sodium, Blood 133 mmol/L (136-145); Total Protein, Blood 6.5 g/dL (6.4-8.2)
== END 2020-06-07 04:44 | disposition home or self-care (01) ==
LOC: ER 00:55
PROVIDERS: Emergency Medicine
DX: R53.1 Weakness (principal); I10 Essential (primary) hypertension; E03.9 Hypothyroidism, unspecified; Z88.6 Allergy status to analgesic agent; Z79.899 Other long term (current) drug therapy
CPT/HCPCS: 36415; 80053; 81001; 82550; 85025; 87086; 99285; P9612

== ENCOUNTER 2020-07-27 17:08 | Emergency (ER) | payer OTHER ==
[~2020-07-27] VITALS: Ht 152.4 cm; Wt 77.1 kg
[2020-07-27 17:39] LABS: BASOPHILS ABSOLUTE AUTO 0.05 K/mm3 (0.00-0.23); BASOPHILS PERCENT AUTO 1 % (0-2); EOSINOPHILS ABSOLUTE AUTO 0.18 K/mm3 (0.00-0.68); EOSINOPHILS PERCENT AUTO 4 % (0-6); Hemoglobin 12.2 g/dL (11.5-16.0); IMMATURE GRAN ABSOLUTE AUTO 0.02 K/mm3 (0.00-0.10); IMMATURE GRAN PERCENT AUTO 0 % (0-1); LYMPHOCYTES PERCENT AUTO 32 % (21-46); MONOCYTES ABSOLUTE AUTO 0.35 K/mm3 (0.16-1.47); MONOCYTES PERCENT AUTO 7 % (4-13); Mean Corpuscular Volume 94 fL (80-100); Mean Platelet Volume 9.5 fL (9.1-12.4); NEUTROPHILS ABSOLUTE AUTO 2.65 K/mm3 (1.96-9.15); NEUTROPHILS PERCENT AUTO 56 % (41-73); Platelet Count 176 K/mm3 (150-400); RDW Coefficient Variation 15.8 % (11.7-14.2); RDW Standard Deviation 54.7 fL (35.1-46.3); Red Blood Cell Count 3.93 M/mm3 (3.80-5.20); White Blood Cell Count 4.75 K/mm3 (4.00-11.30)
[2020-07-27 18:09] LABS: Alanine Aminotransfer (ALT/SGP 16 U/L (12-78); Albumin, Blood 3.9 g/dL (3.4-5.0); Albumin/Globulin Ratio 1.1 (0.8-1.8); Alk Phos 38 U/L (50-136); Anion Gap 8 mmol/L (6-16); Aspartate Aminotrans (AST/SGOT 21 U/L (12-37); Bilirubin, Total 0.4 mg/dL (0.1-1.0); Blood Urea Nitrogen 15 mg/dL (8-24); Bun/Creatinine Ratio 20.7 (12.0-20.0); CO2, Blood 22 mmol/L (21-32); Calcium, Blood 9.5 mg/dL (8.5-10.1); Chloride, Blood 105 mmol/L (98-108); Creatinine, Blood 0.73 mg/dL (0.40-1.00); Globulin, Blood 3.5 g/dL (2.2-4.0); Glomerular Filtration Rate >60 (60-); Glucose, Blood 95 mg/dL (70-99); Potassium, Blood 3.6 mmol/L (3.5-5.5); Sodium, Blood 135 mmol/L (136-145); Total Protein, Blood 7.4 g/dL (6.4-8.2); Troponin I <0.015 ng/mL (0.000-0.040)
== END 2020-07-27 22:30 | disposition home or self-care (01) ==
LOC: ER 17:08
PROVIDERS: Physician Assistant
DX: K44.9 Diaphragmatic hernia without obstruction or gangrene (principal); R07.9 Chest pain, unspecified; M48.56XA Collapsed vertebra, not elsewhere classified, lumbar region, initial encounter for fracture; I10 Essential (primary) hypertension; E03.9 Hypothyroidism, unspecified; Z88.6 Allergy status to analgesic agent; Z79.899 Other long term (current) drug therapy
CPT/HCPCS: 36415; 71046; 71260; 80053; 83690; 83880; 84484; 85025; 85379; 93005; 93010; 99285-25; Q9967

== ENCOUNTER → 2020-08-07 | Outpatient (CLI) | payer OTHER ==
[~2020-08-07] MED LIST changes: +AMOX500 PO; +ESTRADIOL42.5 GM VAG; +Florastor250 MG PO; +GABA100 PO; +HYDCHL25 PO; +LEVOTHYROXINE112 MC2 PO; +METR500 PO; +Spironolactone50 MG PO; +TEMA15 PO; +TRIMETHOPRIM PO
[2020-08-08 11:21] LABS: Alanine Aminotransfer (ALT/SGP 14 U/L (12-78); Albumin, Blood 3.8 g/dL (3.4-5.0); Albumin/Globulin Ratio 1.1 (0.8-1.8); Alk Phos 37 U/L (50-136); Anion Gap 11 mmol/L (6-16); Aspartate Aminotrans (AST/SGOT 18 U/L (12-37); Bilirubin, Total 0.6 mg/dL (0.1-1.0); Blood Urea Nitrogen 17 mg/dL (8-24); Bun/Creatinine Ratio 20.1 (12.0-20.0); CO2, Blood 20 mmol/L (21-32); Calcium, Blood 9.5 mg/dL (8.5-10.1); Chloride, Blood 103 mmol/L (98-108); Creatinine, Blood 0.85 mg/dL (0.40-1.00); Globulin, Blood 3.4 g/dL (2.2-4.0); Glomerular Filtration Rate >60 (60-); Glucose, Blood 98 mg/dL (70-99); Potassium, Blood 4.3 mmol/L (3.5-5.5); Sodium, Blood 134 mmol/L (136-145); Total Protein, Blood 7.2 g/dL (6.4-8.2)
== END | disposition home or self-care (01) ==
LOC: LAB SHORT 09:29 → LAB 09:29
PROVIDERS: Nurse Practitioner Family
DX: E03.9 Hypothyroidism, unspecified (principal); I10 Essential (primary) hypertension
CPT/HCPCS: 80053; 84443

== ENCOUNTER → 2020-09-28 | Outpatient (CLI) | payer OTHER ==
[2020-09-28 15:35] LABS: Anion Gap 6 mmol/L (6-16); Blood Urea Nitrogen 17 mg/dL (8-24); Bun/Creatinine Ratio 24.6 (12.0-20.0); CO2, Blood 28 mmol/L (21-32); Calcium, Blood 8.9 mg/dL (8.5-10.1); Chloride, Blood 103 mmol/L (98-108); Creatinine, Blood 0.69 mg/dL (0.40-1.00); Glomerular Filtration Rate >60 (60-); Glucose, Blood 127 mg/dL (70-99); Potassium, Blood 3.7 mmol/L (3.5-5.5); Sodium, Blood 137 mmol/L (136-145)
== END | disposition home or self-care (01) ==
LOC: LAB SHORT 12:58 → LAB 12:58
PROVIDERS: Nurse Practitioner Family
DX: I10 Essential (primary) hypertension (principal); R31.9 Hematuria, unspecified; E03.9 Hypothyroidism, unspecified
CPT/HCPCS: 80048; 84443; 87086

== ENCOUNTER 2020-11-22 13:56 | Emergency (ER) | payer OTHER ==
[~2020-11-22] VITALS: Ht 152.4 cm; Wt 83.0 kg
[~2020-11-22 13:56] MED LIST changes: -AMOX500 PO; -ESTRADIOL42.5 GM VAG; -Florastor250 MG PO; -GABA100 PO; -HYDCHL25 PO; -LEVOTHYROXINE112 MC2 PO; -METR500 PO; -Spironolactone50 MG PO; -TEMA15 PO; -TRIMETHOPRIM PO
[2020-12-26] MEDS ORDERED: ALPR.25 PO (14:03)
[2020-12-26] MEDS ORDERED: Florastor250 MG PO (14:04)
[2020-12-26] MEDS ORDERED: OXYB5 PO (14:04)
[2020-12-26] MEDS ORDERED: HYDCHL12.5 PO (14:04)
[2020-12-26] MEDS ORDERED: Spironolactone50 MG PO (14:05)
[2020-12-26] MEDS ORDERED: SPIR50 PO (14:05)
[2021-02-07] MEDS ORDERED: TRIMETHOPRIM PO (11:45)
== END 2020-11-22 16:00 | disposition left against medical advice (07) ==
LOC: ER 13:56
DX: M54.5 Low back pain (principal); M54.6 Pain in thoracic spine; Z53.21 Procedure and treatment not carried out due to patient leaving prior to being seen by health care provider
CPT/HCPCS: 99282

== ENCOUNTER 2020-11-29 10:57 | Observation (INO) | payer OTHER ==
[~2020-11-29] VITALS: Ht 162.6 cm; Wt 84.6 kg
[2020-11-29] MEDS ORDERED: ESTRADIOL42.5 GM VAG (11:16)
[2020-11-29] MEDS ORDERED: OMEP20ER PO (11:17)
[2020-11-29] MEDS ORDERED: HYDCHL25 PO (11:17)
[2020-11-29] MEDS ORDERED: GABA100 PO (11:17)
[2020-11-29 11:40] LABS: BASOPHILS ABSOLUTE AUTO 0.05 K/mm3 (0.00-0.23); BASOPHILS PERCENT AUTO 1 % (0-2); EOSINOPHILS ABSOLUTE AUTO 0.05 K/mm3 (0.00-0.68); EOSINOPHILS PERCENT AUTO 1 % (0-6); Hematocrit 37.1 % (33.0-51.0); IMMATURE GRAN ABSOLUTE AUTO 0.07 K/mm3 (0.00-0.10); IMMATURE GRAN PERCENT AUTO 1 % (0-1); LYMPHOCYTES ABSOLUTE AUTO 0.66 K/mm3 (0.84-5.20); LYMPHOCYTES PERCENT AUTO 8 % (21-46); MONOCYTES ABSOLUTE AUTO 0.35 K/mm3 (0.16-1.47); MONOCYTES PERCENT AUTO 4 % (4-13); Mean Corpuscular HGB 29.6 pg (26.0-34.0); Mean Corpuscular HGB Conc 32.3 g/dL (31.5-36.5); Mean Corpuscular Volume 92 fL (80-100); Mean Platelet Volume 9.5 fL (9.1-12.4); NEUTROPHILS ABSOLUTE AUTO 6.75 K/mm3 (1.96-9.15); NEUTROPHILS PERCENT AUTO 85 % (41-73); Platelet Count 175 K/mm3 (150-400); RDW Coefficient Variation 14.1 % (11.7-14.2); RDW Standard Deviation 47.6 fL (35.1-46.3); Red Blood Cell Count 4.05 M/mm3 (3.80-5.20); White Blood Cell Count 7.93 K/mm3 (4.00-11.30)
[2020-11-29 11:58] LABS: Alanine Aminotransfer (ALT/SGP 17 U/L (12-78); Albumin, Blood 3.5 g/dL (3.4-5.0); Alk Phos 91 U/L (50-136); Anion Gap 5 mmol/L (6-16); Aspartate Aminotrans (AST/SGOT 18 U/L (12-37); Blood Urea Nitrogen 18 mg/dL (8-24); Bun/Creatinine Ratio 27.3 (12.0-20.0); CO2, Blood 28 mmol/L (21-32); Calcium, Blood 8.9 mg/dL (8.5-10.1); Chloride, Blood 103 mmol/L (98-108); Creatinine, Blood 0.66 mg/dL (0.40-1.00); Globulin, Blood 3.4 g/dL (2.2-4.0); Glomerular Filtration Rate >60 (60-); Glucose, Blood 109 mg/dL (70-99); Potassium, Blood 3.2 mmol/L (3.5-5.5); Sodium, Blood 136 mmol/L (136-145); Total Protein, Blood 6.9 g/dL (6.4-8.2); Troponin I <0.015 ng/mL (0.000-0.040)
[2020-11-29 12:05] LABS: Source, Urine Catheter
[2020-11-29 12:09] LABS: Bilirubin, Urine Neg (Neg); Blood, Urine 1+ (Neg); Glucose Qualitative, Urine Neg (Neg); Ketones, Urine 1+ (Neg); Leukocyte Esterase, Urine 3+ (Neg); Nitrite, Urine Neg (Neg); Protein, Urine 2+ (Neg); Urobilinogen, Urine 2+ (Normal)
[2020-11-29 12:18] LABS: Appearance, Urine Hazy (Clear); Bacteria Rare /hpf; Color, Urine Yellow (P-Yellow); Squamous Epithelial Cells Not Seen /hpf (Few); White Blood Cells, Urine 50-100 /hpf (0-5)
[2020-11-29] MEDS ORDERED: TEMA15 PO (17:34)
[2020-11-29] MEDS ORDERED: LEVOTHYROXINE112 MC2 PO (17:35)
--- NOTE | 2020-11-29 19:35 | NUR ---
ADMISSION: PATIENT IS RECIEVED FROM ER VIA STRETCHER. VSS. REQUESTING FOOD. BROTH IS GIVEN WITH JUICE. PATIENT IS ORIENTED TO ROOM AND CALL CEDILLO.
[2020-11-30 05:29] LABS: BASOPHILS ABSOLUTE AUTO 0.02 K/mm3 (0.00-0.23); BASOPHILS PERCENT AUTO 0 % (0-2); EOSINOPHILS PERCENT AUTO 2 % (0-6); Hematocrit 33.1 % (33.0-51.0); Hemoglobin 10.9 g/dL (11.5-16.0); IMMATURE GRAN ABSOLUTE AUTO 0.03 K/mm3 (0.00-0.10); IMMATURE GRAN PERCENT AUTO 1 % (0-1); LYMPHOCYTES ABSOLUTE AUTO 1.54 K/mm3 (0.84-5.20); LYMPHOCYTES PERCENT AUTO 32 % (21-46); MONOCYTES ABSOLUTE AUTO 0.38 K/mm3 (0.16-1.47); MONOCYTES PERCENT AUTO 8 % (4-13); Mean Corpuscular HGB 29.9 pg (26.0-34.0); Mean Corpuscular HGB Conc 32.9 g/dL (31.5-36.5); Mean Corpuscular Volume 91 fL (80-100); Mean Platelet Volume 10.1 fL (9.1-12.4); NEUTROPHILS PERCENT AUTO 57 % (41-73); Platelet Count 168 K/mm3 (150-400); RDW Coefficient Variation 14.1 % (11.7-14.2); RDW Standard Deviation 47.2 fL (35.1-46.3); Red Blood Cell Count 3.64 M/mm3 (3.80-5.20); White Blood Cell Count 4.77 K/mm3 (4.00-11.30)
--- NOTE | 2020-11-30 05:48 | NUR ---
SHIFT SUMMARY: PATIENT IS A&OX4, VSS WITH PERSISTANT BRADYCARDIA. UP TO THE BATHROOM WITH SBA X1 AND FWW, STEADY GAIT OBSERVED. PATIENT DISLODGED SL DURING SLEEP. GALDINO IS PATENT FOR A COKE COLORED CLOUDY URINE THAT CLEARED SLIGHTLY TO A DARK ARLENE. PATIENT HAD A LOOSE STOOL THAT WAS A [employer] OF A SMALL AMOUNT ON HER WAY TO THE BATHROOM. BED ALARM IS ON FOR SAFETY.
[2020-11-30 06:28] LABS: Alanine Aminotransfer (ALT/SGP 14 U/L (12-78); Albumin, Blood 2.8 g/dL (3.4-5.0); Alk Phos 63 U/L (50-136); Anion Gap 5 mmol/L (6-16); Aspartate Aminotrans (AST/SGOT 12 U/L (12-37); Bilirubin, Total 0.9 mg/dL (0.1-1.0); Blood Urea Nitrogen 15 mg/dL (8-24); Bun/Creatinine Ratio 24.8 (12.0-20.0); CO2, Blood 26 mmol/L (21-32); Calcium, Blood 8.4 mg/dL (8.5-10.1); Chloride, Blood 104 mmol/L (98-108); Globulin, Blood 2.9 g/dL (2.2-4.0); Glomerular Filtration Rate >60 (60-); Glucose, Blood 92 mg/dL (70-99); Potassium, Blood 3.6 mmol/L (3.5-5.5); Sodium, Blood 135 mmol/L (136-145); Total Protein, Blood 5.7 g/dL (6.4-8.2)
--- NOTE | 2020-11-30 13:04 | NUR ---
Echocardiogram completed.
--- NOTE | 2020-11-30 18:39 | NUR ---
PT STATES FEELS SOME BETTER. DID GET DR TO UP FOOD TO SOFT BITE. PT QUITE PLEASE AND EATING AT THIS TIME. NO SYNCOPAL EPISODES TODAY. DID HAVE PT/OT WORK WITH HER TODAY. PT CONTINUES TO BE QUITE PLEASANT AND TALKATIVE, BED IN LOW POSITIN, CALL LITE IN REACH, CALLS APPROP
--- NOTE | 2020-12-01 05:14 | NUR ---
SHIFT SUMMARY: NO ACUTE CHANGES, GALDINO IS PATENT FOR A CLOUDY YELLOW URINE. REPORTING CHRONIC BACK PIN AND INSOMNIA. RESTORIL AND HYDROCODONE ARE GIVEN WITH GOOD EFFECT.
[2020-12-01 05:22] LABS: BASOPHILS ABSOLUTE AUTO 0.03 K/mm3 (0.00-0.23); BASOPHILS PERCENT AUTO 1 % (0-2); EOSINOPHILS ABSOLUTE AUTO 0.17 K/mm3 (0.00-0.68); EOSINOPHILS PERCENT AUTO 4 % (0-6); Hematocrit 31.3 % (33.0-51.0); Hemoglobin 10.3 g/dL (11.5-16.0); IMMATURE GRAN ABSOLUTE AUTO 0.02 K/mm3 (0.00-0.10); IMMATURE GRAN PERCENT AUTO 1 % (0-1); LYMPHOCYTES ABSOLUTE AUTO 1.53 K/mm3 (0.84-5.20); LYMPHOCYTES PERCENT AUTO 39 % (21-46); MONOCYTES ABSOLUTE AUTO 0.31 K/mm3 (0.16-1.47); MONOCYTES PERCENT AUTO 8 % (4-13); Mean Corpuscular HGB 29.9 pg (26.0-34.0); Mean Corpuscular HGB Conc 32.9 g/dL (31.5-36.5); Mean Corpuscular Volume 91 fL (80-100); Mean Platelet Volume 9.9 fL (9.1-12.4); NEUTROPHILS ABSOLUTE AUTO 1.84 K/mm3 (1.96-9.15); NEUTROPHILS PERCENT AUTO 47 % (41-73); Platelet Count 145 K/mm3 (150-400); RDW Coefficient Variation 14.1 % (11.7-14.2); RDW Standard Deviation 47.1 fL (35.1-46.3); Red Blood Cell Count 3.45 M/mm3 (3.80-5.20)
[2020-12-01 05:53] LABS: Anion Gap 5 mmol/L (6-16); Blood Urea Nitrogen 9 mg/dL (8-24); Bun/Creatinine Ratio 12.7 (12.0-20.0); CO2, Blood 25 mmol/L (21-32); Calcium, Blood 8.3 mg/dL (8.5-10.1); Chloride, Blood 108 mmol/L (98-108); Creatinine, Blood 0.71 mg/dL (0.40-1.00); Glomerular Filtration Rate >60 (60-); Glucose, Blood 89 mg/dL (70-99); Potassium, Blood 3.8 mmol/L (3.5-5.5); Sodium, Blood 138 mmol/L (136-145)
[2020-12-01] MEDS ORDERED: AMOX500 PO (10:57)
[2020-12-01] MEDS ORDERED: METR500 PO (10:57)
--- NOTE | 2020-12-01 12:51 | NUR ---
DISCHARGE DISCHARGE MEDICATIONS AND INSTRUCTIONS EXPLAINED TO PATIENT AND PATIENT'S SON. THEY STATED UNDERSTANDING. NO IV ACCESS. AHMADI REMOVED BEFORE DISCHARGE. BELONGINGS WITH PATIENT. PATIENT TRANSFERED TO PRIVATE VEHICLE VIA WHEELCHAIR.
[2020-12-26] MEDS ORDERED: ALPR.25 PO (14:03)
[2020-12-26] MEDS ORDERED: OXYB5 PO (14:04)
[2020-12-26] MEDS ORDERED: HYDCHL12.5 PO (14:04)
[2020-12-26] MEDS ORDERED: Florastor250 MG PO (14:04)
[2020-12-26] MEDS ORDERED: Spironolactone50 MG PO (14:05)
[2020-12-26] MEDS ORDERED: SPIR50 PO (14:05)
[2021-02-07] MEDS ORDERED: TRIMETHOPRIM PO (11:45)
== END 2020-12-01 12:31 | disposition home or self-care (01) ==
LOC: ER 10:57 → MEDS 10:58 → ER 10:58 → MEDS 19:10
PROVIDERS: Emergency Medicine; ADMIT Internal Medicine
DX: K52.9 Noninfective gastroenteritis and colitis, unspecified (principal); R55 Syncope and collapse; N39.0 Urinary tract infection, site not specified; B96.20 Unspecified Escherichia coli [E. coli] as the cause of diseases classified elsewhere; I10 Essential (primary) hypertension; E03.9 Hypothyroidism, unspecified; R01.1 Cardiac murmur, unspecified; R00.1 Bradycardia, unspecified; E87.6 Hypokalemia; G89.29 Other chronic pain; M54.9 Dorsalgia, unspecified; E86.0 Dehydration; S22.089A Unspecified fracture of T11-T12 vertebra, initial encounter for closed fracture; X58.XXXA Exposure to other specified factors, initial encounter; Z88.6 Allergy status to analgesic agent; Z88.1 Allergy status to other antibiotic agents; Z96.659 Presence of unspecified artificial knee joint
CPT/HCPCS: 36415; 51702; 74176; 80048; 80053; 81001; 82272; 83605; 83690; 84443; 84484; 85025; 87040; 87077; 87086; 87186; 93005; 93010; 93306; 96365-59; 96366; 96367-59; 96372; 96372-59; 96375; 97116; 97161; 97530; 99285-25; A9270; G0378; J0696; J1650; J2405; J3480; J7030; J7050

== ENCOUNTER 2021-01-31 10:06 | Day surgery (SDC) | payer OTHER ==
[~2021-01-31] VITALS: Ht 152.4 cm; Wt 75.4 kg
[~2021-01-31 10:06] MED LIST changes: +AMOX500 PO; +ESTRADIOL42.5 GM VAG; +Florastor250 MG PO; +GABA100 PO; +HYDCHL25 PO; +LEVOTHYROXINE112 MC2 PO; +METR500 PO; +Spironolactone50 MG PO; +TEMA15 PO
--- NOTE | 2021-01-31 10:34 | NUR ---
01/31/21 1034 Cassidy Santoro, KEHINDE CHARTING TETRACAINE DROP IN AT 1021 ORDERED. PLEDGETT IN AT 1027 ORDERED.
[2021-02-07] MEDS ORDERED: TRIMETHOPRIM PO (11:45)
== END 2021-01-31 12:50 | disposition home or self-care (01) ==
LOC: ORSCSDS 10:06
PROVIDERS: Ophthalmology
PROC: 08RJ3JZ Replacement of Right Lens with Synthetic Substitute, Percutaneous Approach (ICD-10-PCS; principal; 2021-01-31 11:15)
DX: H25.11 Age-related nuclear cataract, right eye (principal); I10 Essential (primary) hypertension; E66.9 Obesity, unspecified; Z68.32 Body mass index [BMI] 32.0-32.9, adult; K21.9 Gastro-esophageal reflux disease without esophagitis; Z79.899 Other long term (current) drug therapy
CPT/HCPCS: J1100; J2001; J2250; J2405; J3010; J7040; V2632

== ENCOUNTER 2021-02-14 10:11 | Day surgery (SDC) | payer OTHER ==
[~2021-02-14] VITALS: Ht 152.4 cm; Wt 76.1 kg
[~2021-02-14 10:11] MED LIST changes: +TRIMETHOPRIM PO
--- NOTE | 2021-02-14 10:27 | NUR ---
02/14/21 1027 Vera Headley TETRACAINE DROP PLACED IN LT EYE PER DR ORDERS AT 1017. PLEDGET PLACED IN LT EYE PER DR ORDERS AT 1019.
== END 2021-02-14 11:18 | disposition home or self-care (01) ==
LOC: ORSCSDS 10:11
PROVIDERS: Ophthalmology
PROC: 08RK3JZ Replacement of Left Lens with Synthetic Substitute, Percutaneous Approach (ICD-10-PCS; principal; 2021-02-14 11:15)
DX: H25.12 Age-related nuclear cataract, left eye (principal); I10 Essential (primary) hypertension; K21.9 Gastro-esophageal reflux disease without esophagitis; Z79.899 Other long term (current) drug therapy; Z79.82 Long term (current) use of aspirin
CPT/HCPCS: J2001; J2250; J3010; J7040; V2632

== ENCOUNTER → 2021-07-25 | Outpatient (CLI) | payer OTHER ==
[2021-07-25 20:36] LABS: Alanine Aminotransfer (ALT/SGP 20 U/L (12-78); Albumin, Blood 3.3 g/dL (3.4-5.0); Albumin/Globulin Ratio 0.9 (0.8-1.8); Alk Phos 34 U/L (50-136); Anion Gap 8 mmol/L (6-16); Aspartate Aminotrans (AST/SGOT 19 U/L (12-37); Bilirubin, Total 0.4 mg/dL (0.1-1.0); Blood Urea Nitrogen 16 mg/dL (8-24); Bun/Creatinine Ratio 18.2 (12.0-20.0); CO2, Blood 25 mmol/L (21-32); Chloride, Blood 104 mmol/L (98-108); Creatinine, Blood 0.88 mg/dL (0.40-1.00); Globulin, Blood 3.8 g/dL (2.2-4.0); Glomerular Filtration Rate >60 (60-); Glucose, Blood 96 mg/dL (70-99); Potassium, Blood 3.8 mmol/L (3.5-5.5); Sodium, Blood 137 mmol/L (136-145); Total Protein, Blood 7.1 g/dL (6.4-8.2)
== END | disposition home or self-care (01) ==
LOC: LAB SHORT 19:08
PROVIDERS: Nurse Practitioner Family
DX: I10 Essential (primary) hypertension (principal); E03.9 Hypothyroidism, unspecified; F11.20 Opioid dependence, uncomplicated; M51.36 Other intervertebral disc degeneration, lumbar region; M47.896 Other spondylosis, lumbar region; M54.9 Dorsalgia, unspecified
CPT/HCPCS: 80053; 84443

== ENCOUNTER → 2023-06-05 | Outpatient (CLI) | payer OTHER ==
[~2023-06-05] MED LIST changes: +CEFD300 PO; +HYDROCODONE-AC1 EA18 PO
== END | disposition home or self-care (01) ==
LOC: LAB SHORT 13:05 → LAB 13:05
DX: R35.89 Other polyuria (principal)
CPT/HCPCS: 87077; 87086; 87186

== ENCOUNTER 2023-12-17 17:12 | Emergency (ER) | payer OTHER ==
[~2023-12-17] VITALS: Ht 162.6 cm; Wt 77.1 kg
[2023-12-17 18:24] LABS: BASOPHILS ABSOLUTE AUTO 0.03 K/mm3 (0.00-0.23); BASOPHILS PERCENT AUTO 1 % (0-2); EOSINOPHILS ABSOLUTE AUTO 0.02 K/mm3 (0.00-0.68); EOSINOPHILS PERCENT AUTO 0 % (0-6); Hematocrit 33.8 % (33.0-51.0); Hemoglobin 11.2 g/dL (11.5-16.0); IMMATURE GRAN PERCENT AUTO 2 % (0-1); LYMPHOCYTES ABSOLUTE AUTO 0.79 K/mm3 (0.84-5.20); LYMPHOCYTES PERCENT AUTO 13 % (21-46); MONOCYTES ABSOLUTE AUTO 0.36 K/mm3 (0.16-1.47); MONOCYTES PERCENT AUTO 6 % (4-13); Mean Corpuscular HGB 26.1 pg (26.0-34.0); Mean Corpuscular HGB Conc 33.1 g/dL (31.5-36.5); Mean Corpuscular Volume 79 fL (80-100); Mean Platelet Volume 9.8 fL (9.1-12.4); NEUTROPHILS ABSOLUTE AUTO 4.98 K/mm3 (1.96-9.15); NEUTROPHILS PERCENT AUTO 79 % (41-73); Platelet Count 140 K/mm3 (150-400); RDW Coefficient Variation 20.6 % (11.7-14.2); RDW Standard Deviation 58.4 fL (35.1-46.3); Red Blood Cell Count 4.29 M/mm3 (3.80-5.20); White Blood Cell Count 6.28 K/mm3 (4.00-11.30)
[2023-12-17 18:33] LABS: Albumin, Blood 3.4 g/dL (3.4-5.0); Bilirubin, Total 1.1 mg/dL (0.1-1.0); Calcium, Blood 8.8 mg/dL (8.5-10.1); Creatinine, Blood 0.76 mg/dL (0.40-1.00); Globulin, Blood 3.4 g/dL (2.2-4.0); Potassium, Blood 3.2 mmol/L (3.5-5.5); Total Protein, Blood 6.8 g/dL (6.4-8.2)
[2023-12-17] MEDS ORDERED: Potassium Chloride 10 Meq Tablet SA PO ONE (19:35)
[2023-12-17] MEDS ORDERED: Cefpodoxime Proxetil 200 MG Tab PO ONE (20:05)
[2023-12-17 20:37] VITALS: BP 145/76
== END 2023-12-17 20:43 | disposition home or self-care (01) ==
LOC: ER 17:12
PROVIDERS: Emergency Medicine
DX: N39.0 Urinary tract infection, site not specified (principal); E87.6 Hypokalemia; R11.10 Vomiting, unspecified; I10 Essential (primary) hypertension; E03.9 Hypothyroidism, unspecified; M19.90 Unspecified osteoarthritis, unspecified site; G47.00 Insomnia, unspecified; Z88.6 Allergy status to analgesic agent
CPT/HCPCS: 80053; 85025; 99283; A9270